=== PATIENT | male | born 1940 | race Caucasian/White ===

== ENCOUNTER 2021-04-18 17:37 | Emergency (ER) | payer OTHER, BC ==
[2021-04-18 18:09] VITALS: BP 102/61; PULSE 81; TEMP 98.2; BMI 23.1
[2021-04-18] MEDS ORDERED: CASIRIVIMAB/IMDEVIMAB 10 ML in SODIUM CHLORIDE 100 ML IVPB ONE (18:34)
[2021-04-18 21:09] LABS: BASO % 0.6 % (0-2.0); EOS % 1.9 % (0-4.5); HEMATOCRIT 42.3 % (35.4-49); HEMOGLOBIN 14.5 GM/dL (11.7-16.9); LYMPH % 18.4 % (8-40); MCH 31.8 pg (25.7-33.7); MCHC 34.3 g/dl (32.0-35.9); MEAN CELL VOLUME 92.9 fl (80-96); MEAN PLT VOLUME 7.4 fl (7.5-11.1); MONO % 10.8 % (3.8-10.2); NEUT % 68.3 % (42.8-82.8); PLATELET COUNT 224 10^3/uL (134-434); RBC 4.55 M/mm3 (4.00-5.60); RDW 14.3 % (11.9-15.9); WHITE BLOOD COUNT 10.9 K/mm3 (4.0-10.0)
[2021-04-18 21:32] LABS: CALCIUM 8.6 mg/dL (8.5-10.1)
[2021-04-18 21:33] LABS: ALBUMIN 3.2 g/dl (3.4-5.0); BLOOD UREA NITROGEN 30.8 mg/dL (7-18)
[2021-04-18 21:36] LABS: CREATININE 1.2 mg/dL (0.55-1.3)
[2021-04-18 21:38] LABS: BILIRUBIN,TOTAL 0.7 mg/dL (0.2-1); TOT PROT 6.5 g/dl (6.4-8.2)
== END 2021-04-18 22:40 | disposition home or self-care (01) ==
LOC: JER 17:37
DX: U07.1 COVID-19 (principal)
CPT/HCPCS: 36415; 80053; 85025; 99283-25; Q0240